=== PATIENT | female | born 1990 | race Caucasian/White ===

== ENCOUNTER 2020-06-04 17:21 | Emergency (ER) | payer OTHER ==
[~2020-06-04 17:21] MED LIST: FIORINAL 50-321 EACH PO; METOCLOPRAMIDE10 MG PO; PHENERGAN 12.12.5 M1 PO; PRENATAL VITAM1 EAC8 PO; PRILOSEC OTC20 MG PO
[2020-06-04 19:43] LABS: HEMOGLOBIN 15.1 gm/dl (12.3-15.3); RED BLOOD COUNT 5.2 M/UL (4.00-5.10); WHITE BLOOD COUNT 20.4 K/UL (4.5-11.0)
[2020-06-04 20:01] LABS: BUN/CREATININE RATIO 27 (0-10)
[2020-06-04] MEDS ORDERED: BENTYL 10MG CAP10 MG PO (22:36)
[2020-06-04] MEDS ORDERED: ZOFRAN4 MG PO (22:36)
== END 2020-06-05 00:30 | disposition home or self-care (01) ==
LOC: ER1 17:21
PROVIDERS: Physician Assistant
DX: R10.9 Unspecified abdominal pain (principal); R10.811 Right upper quadrant abdominal tenderness; R10.813 Right lower quadrant abdominal tenderness; I10 Essential (primary) hypertension; E11.9 Type 2 diabetes mellitus without complications; F17.210 Nicotine dependence, cigarettes, uncomplicated; Z90.49 Acquired absence of other specified parts of digestive tract; Z87.19 Personal history of other diseases of the digestive system
CPT/HCPCS: 70450; 80053; 81001; 83690; 83735; 84703; 85025; 96372; 96374; 96375; 99284; J0500; J1200; J2060; J2550; Q9967